=== PATIENT | female | born 1980 | race Caucasian/White ===

== ENCOUNTER 2018-09-16 11:07 | Emergency (ER) | payer SELFPAY ==
[~2018-09-16] VITALS: Ht 170.2 cm; Wt 70.8 kg
--- NOTE | 2018-09-16 11:10 | NUR ---
BIB [facility] 80 FROM HER [facility],"SCRATCHY THROAT AND NAUSEA SINCE THIS MORNING", PATIENT VERBALIZES FEELING DIFFICULTY BREATHING, BUT SPO2 AT 96% IN ROOM AIR. PATIENT PLACED ON MONITOR. NO DISTRESS NOTED AT THIS TIME.
[2018-09-16] MEDS ORDERED: EPIN0.3P3 IJ (11:11)
[2018-09-16] MEDS ORDERED: ONDANSETRON HCL/PF 4 MG/2 ML VIAL IVP ONE (11:30)
[2018-09-16] MEDS ORDERED: methylPREDNISolone SOD SUCC 125 MG/2ML VIAL IV ONE (11:30)
[2018-09-16] MEDS ORDERED: diphenhydrAMINE HCL 50 MG/ML VIAL ONE (11:30)
[2018-09-16] MEDS ORDERED: methylPREDNISolone SOD SUCC 125 MG/2ML VIAL ONE (11:30)
[2018-09-16] MEDS ORDERED: diphenhydrAMINE HCL 50 MG/ML VIAL IV ONE (11:30)
[2018-09-16] MEDS ORDERED: ONDANSETRON HCL/PF 4 MG/2 ML VIAL ONE (11:36)
[2018-09-16] MEDS ORDERED: EPINEPHRINE (1:1000) 1 MG/ML AMPUL ONE (11:39)
[2018-09-16] MEDS ORDERED: EPINEPHRINE (1:1000) MDV 30 MG/30ML VIAL SUBCUT ONE (12:00)
--- NOTE | 2018-09-16 12:42 | NUR ---
Patient discharged to home in stable condition. Written and verbal after care instructions given. Patient verbalizes understanding of instruction. Peripheral IV removed. Patient feels better, no sob noted.
[2018-09-16 12:46] VITALS: BP 149/70
== END 2018-09-16 12:53 | disposition home or self-care (01) ==
LOC: ER 11:11
DX: T78.1XXA Other adverse food reactions, not elsewhere classified, initial encounter (principal); Z91.010 Allergy to peanuts; X58.XXXA Exposure to other specified factors, initial encounter
CPT/HCPCS: 96372; 96374; 96375; 99283; A4606; J0171 ×2; J1200; J2405; J2930